=== PATIENT | female | born 2005 | race Caucasian/White ===

== ENCOUNTER 2024-01-05 00:04 | Emergency (ER) | payer BC ==
[~2024-01-05] VITALS: Ht 172.7 cm; Wt 56.8 kg
[2024-01-05] MEDS ORDERED: LEXAPRO 10MG10 MG PO (00:15)
[2024-01-05] MEDS ORDERED: OXYCODONE HCL10 M1 PO (00:16)
[2024-01-05 00:59] LABS: BASO # 0.01 K/mm3 (0.02-0.10); EOS % 2.2 % (0.1-4.0); HEMATOCRIT 40.6 % (35.0-45.0); LYMPH# 2.74 K/mm3 (1.20-3.40); MEAN CELL VOLUME 93 fl (78-95); MEAN CORPUSCULAR HEMOGLOBIN 32 pg (26-32); MEAN CORPUSCULAR HGB CONC 35 g/dL (33-37); MEAN PLATELET VOLUME 8.8 fl (7.4-10.4); MONO # 0.62 K/mm3 (0.10-0.60); NEU # 5.49 K/mm3 (1.40-6.50); PLATELET COUNT 476 K/mm3 (130-400); RED BLOOD COUNT 4.38 M/mm3 (4.10-5.30); RED CELL DISTRIBUTION WIDTH 11.9 % (11.5-14.5); WHITE BLOOD COUNT 9.1 K/mm3 (4.8-10.8)
[2024-01-05] MEDS ORDERED: NS 1,000 ML IV SCH (01:00)
[2024-01-05] MEDS ORDERED: Ondansetron 4 MG/2 ML VIAL IV ONE (01:00)
[2024-01-05] MEDS ORDERED: Ketorolac 30 MG/ML VIAL IV ONE (01:00)
[2024-01-05 01:07] LABS: ALBUMIN 4.7 g/dL (3.5-5.0); SODIUM 141 mmol/L (136-145)
[2024-01-05 01:10] LABS: GLUCOSE 96 mg/dL (65-105); TOTAL PROTEIN 7.4 g/dL (6.4-8.3)
[2024-01-05 01:11] LABS: CARBON DIOXIDE 19 mmol/L (22-29)
[2024-01-05 01:12] LABS: TOTAL BILIRUBIN 0.3 mg/dL (0.2-1.2)
[2024-01-05 01:15] LABS: AST-SGOT 21 U/L (5-34)
[2024-01-05 01:16] LABS: ALT/SGPT 28 U/L (0-55)
[2024-01-05] MEDS ORDERED: cefTRIAXone 1 G in Water For Injection,Sterile 10 ML IV ONE (01:45)
[2024-01-05] MEDS ORDERED: BACTRIM DS TAB1 EACH PO (01:45)
[2024-01-05] MEDS ORDERED: KETOROLAC10 MG PO (01:45)
[2024-01-05] MEDS ORDERED: ZOFRAN ODT4 MG PO (01:45)
[2024-01-05 01:59] VITALS: BP 123/82
== END 2024-01-05 02:13 | disposition home or self-care (01) ==
LOC: ED 00:04
PROVIDERS: Family Medicine
DX: M25.562 Pain in left knee (principal); G89.28 Other chronic postprocedural pain; Z88.0 Allergy status to penicillin; Z88.1 Allergy status to other antibiotic agents
CPT/HCPCS: J0696; J1885; J2405; J7030